=== PATIENT | female | born 1945 | race Caucasian/White ===

== ENCOUNTER 2016-12-26 16:37 | Emergency (ER) | payer MEDICARE, OTHER ==
[2016-12-26] MEDS ORDERED: Ibuprofen TAB* 600 MG PO ONE ×2 (17:56→21:35)
[2016-12-26] MEDS ORDERED: Cyclobenzaprine TAB* 10 MG PO ONE (21:52)
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
[2016-12-26 21:56] VITALS: BP 136/61
== END 2016-12-26 22:16 | disposition home or self-care (01) ==
LOC: ED 16:37
DX: S76.911A Strain of unspecified muscles, fascia and tendons at thigh level, right thigh, initial encounter (principal); V29.9XXA Motorcycle rider (driver) (passenger) injured in unspecified traffic accident, initial encounter; Y93.9 Activity, unspecified; Y92.9 Unspecified place or not applicable; Y99.9 Unspecified external cause status
CPT/HCPCS: 99282; A9270-GY